=== PATIENT | male | born 1990 | race Caucasian/White ===

== ENCOUNTER 2017-05-03 15:06 | Emergency (ER) | payer SELFPAY ==
[~2017-05-03] VITALS: Ht 185.4 cm; Wt 83.1 kg
[~2017-05-03 15:06] MED LIST: NO HOME MEDS
[2017-05-03] MEDS ORDERED: AMPICILLIN/SULBACTAM 3 GM in SODIUM CHLORIDE 0.9% 100 ML IVPB ONE (15:30)
[2017-05-03] MEDS ORDERED: SODIUM CHLORIDE FLUSH 10ML SYR IVF ONE (15:30)
[2017-05-03] MEDS ORDERED: DEXAMETHASONE 4 MG/ML, 1ML IV ONE (15:30)
[2017-05-03] MEDS ORDERED: HYDROmorphone 1 MG/ML, 1ML ONE ×2 (16:12→16:54)
[2017-05-03] MEDS ORDERED: ONDANSETRON 2MG/ML, 2ML ONE (16:12)
[2017-05-03] MEDS ORDERED: DEXAMETHASONE 4 MG/ML, 5ML ONE (16:12)
[2017-05-03] MEDS: HYDROmorphone 1 MG/ML, 1ML IVPush PRN ×2 (16:17→16:56)
[2017-05-03] MEDS ORDERED: DEXAMETHASONE 4 MG/ML, 1ML ONE (16:26)
[2017-05-03] MEDS ORDERED: ONDANSETRON 2MG/ML, 2ML IVPush ONE (16:30)
[2017-05-03 17:17] VITALS: BP 123/77
== END 2017-05-03 17:32 | disposition home or self-care (01) ==
LOC: ED 16:42
DX: J02.9 Acute pharyngitis, unspecified (principal); F17.210 Nicotine dependence, cigarettes, uncomplicated
CPT/HCPCS: 96365; 96375; 96376; 99284; J0295; J1100; J1170; J2405

== ENCOUNTER 2020-12-22 23:49 | Inpatient (IN) | payer BC, OTHER ==
[~2020-12-22] VITALS: Ht 185.4 cm; Wt 100.0 kg
--- NOTE | 2020-12-22 23:55 | NUR ---
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
[2020-12-23] MEDS ORDERED: SODIUM CHLORIDE FLUSH 10ML SYR IVF ONE
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
[2020-12-23] MEDS ORDERED: MORPHINE SULFATE 4 MG/ML, 1ML ONE ×2 (00:08→00:39)
[2020-12-23] MEDS ORDERED: ONDANSETRON 2MG/ML, 2ML ONE (00:08)
[2020-12-23] MEDS: MORPHINE SULFATE 4 MG/ML, 1ML IVPush PRN ×2 (00:14→00:35)
--- NOTE | 2020-12-23 00:20 | NUR ---
Patient c/o extreme head pressure. Medicated patient per mar. Patient to CT.
[2020-12-23] MEDS ORDERED: SODIUM CHLORIDE 0.9% 1,000ML IVBOLUS ONE (00:30)
[2020-12-23] MEDS ORDERED: ONDANSETRON 2MG/ML, 2ML IVPush ONE (00:30)
[2020-12-23] MEDS ORDERED: LORazepam 2 MG/ML, 1ML ONE (00:53)
--- NOTE | 2020-12-23 00:58 | NUR ---
Patient anxious; medicated patient per mar.
[2020-12-23] MEDS ORDERED: LORazepam 2 MG/ML, 1ML IVPush ONE (01:00)
[2020-12-23 01:03] LABS: BASOPHILS % (AUTO) 1 % (0-1); EOSINOPHILS % (AUTO) 2 % (1-7); LYMPHOCYTES % (AUTO) 28 % (22-44); MEAN CORPUSCULAR HEMOGLOBIN 31.4 pg (27.5-34.5); MEAN PLATELET VOLUME 8.5 fL (7.4-10.4); MONOCYTES % (AUTO) 10 % (2-9); NEUTROPHILS % (AUTO) 60 % (42-75); PLATELET COUNT 249 x10^3/uL (130-400); RED BLOOD COUNT 5.43 x10^6/uL (4.38-5.82); RED CELL DISTRIBUTION WIDTH 13.1 % (9.4-14.8)
[2020-12-23 01:08] LABS: ALBUMIN 4.4 g/dL (3.4-5.0); ANION GAP 7 mmol/L (5-15); CHLORIDE 107 mmol/L (98-107); CREATININE 1.47 mg/dL (0.7-1.3)
[2020-12-23 01:15] LABS: INTERNATIONAL NORMALIZED RATIO 1.04 (0.93-1.1); PROTHROMBIN TIME 11.1 Seconds (9.6-11.5)
[2020-12-23] MEDS ORDERED: LEVETIRACETAM 1,000 MG in SODIUM CHLORIDE 0.9% 100 ML IV ONE (01:30)
[2020-12-23] MEDS ORDERED: LIDOCAINE-MPF 1%, 5ML ONE (01:39)
[2020-12-23] MEDS ORDERED: LIDOCAINE-MPF 1%, 5ML INFIL ONE (02:00)
--- NOTE | 2020-12-23 02:23 | NUR ---
ERP at bedside for sutures.
[2020-12-23 02:30] VITALS: BP 120/67
[2020-12-23] MEDS ORDERED: LABETALOL 5MG/ML, 20ML IVPush PRN (02:30)
[2020-12-23] MEDS ORDERED: POLYETHYLENE GLYCOL 17 GM PACKET PO PRN (02:30)
[2020-12-23] MEDS ORDERED: DOCUSATE 100 MG CAPSULE PO PRN (02:30)
[2020-12-23] MEDS ORDERED: ONDANSETRON ODT 4 MG PO PRN (02:30)
[2020-12-23] MEDS ORDERED: ONDANSETRON 2MG/ML, 2ML IVPush PRN (02:30)
[2020-12-23] MEDS ORDERED: hydrALAzine 20 MG/ML, 1ML IVPush PRN (02:30)
[2020-12-23] MEDS ORDERED: BISACODYL 10 MG SUPP PR PRN (02:30)
[2020-12-23] MEDS ORDERED: ACETAMINOPHEN 325 MG TABLET PO PRN (02:30)
[2020-12-23] MEDS ORDERED: PROMETHAZINE 25 MG/ML, 1ML IM PRN (02:30)
[2020-12-23] MEDS ORDERED: POTASSIUM CHLORIDE 20 MEQ TAB.ER.PRT PO ONE (03:00)
[2020-12-23] MEDS: OXYcodone IR 5MG TABLET PO PRN ×5 (03:15→18:24)
[2020-12-23 08:27] LABS: BASOPHILS % (AUTO) 1 % (0-1); EOSINOPHILS % (AUTO) 1 % (1-7); LYMPHOCYTES % (AUTO) 22 % (22-44); MEAN CORPUSCULAR HEMOGLOBIN 31.4 pg (27.5-34.5); MEAN CORPUSCULAR HGB CONC 35.2 g/dL (33.2-36.2); MONOCYTES % (AUTO) 11 % (2-9); NEUTROPHILS % (AUTO) 66 % (42-75); PLATELET COUNT 215 x10^3/uL (130-400); RED BLOOD COUNT 4.99 x10^6/uL (4.38-5.82); RED CELL DISTRIBUTION WIDTH 13.1 % (9.4-14.8)
[2020-12-23 08:38] LABS: ALANINE AMINOTRANSFERASE 43 U/L (12-78); ALBUMIN 3.7 g/dL (3.4-5.0); ANION GAP 7 mmol/L (5-15); CALCIUM 8.7 mg/dL (8.5-10.1); CHLORIDE 113 mmol/L (98-107); CHOLESTEROL, TOTAL 213 mg/dL (140-239); CREATININE 1.03 mg/dL (0.7-1.3)
[2020-12-23 08:47] LABS: ALKALINE PHOSPHATASE 104 U/L (45-117); BILIRUBIN,TOTAL 0.6 mg/dL (0.2-1.0); CHOL/HDL RATIO 6.5; HDL CHOL % 15 % (26-37); HDL CHOLESTEROL (DIRECT) 33 mg/dL (40-60); LDL CHOLESTEROL,CALCULATED 145 mg/dL (54-169); LDL/HDL RATIO 4.4 (0.5-3.0); TOTAL PROTEIN 7.1 g/dL (6.4-8.2); TRIGLYCERIDES 176 mg/dL (50-200); VLDL CHOLESTEROL 35 mg/dL (0-25)
[2020-12-23] MEDS: LEVETIRACETAM 500 MG in SODIUM CHLORIDE 0.9% 100 ML IV SCH (13:05)
[2020-12-23] MEDS: morphine SULFATE 10 MG/ML, 1ML IVPush PRN ×2 (20:02→23:03)
[2020-12-24] MEDS: LEVETIRACETAM 500 MG in SODIUM CHLORIDE 0.9% 100 ML IV SCH (00:51)
[2020-12-24] MEDS: morphine SULFATE 10 MG/ML, 1ML IVPush PRN ×2 (03:32→06:38)
[2020-12-24 06:02] LABS: ANION GAP 6 mmol/L (5-15); CALCIUM 9.1 mg/dL (8.5-10.1); CHLORIDE 108 mmol/L (98-107); CREATININE 1.12 mg/dL (0.7-1.3)
[2020-12-24] MEDS ORDERED: LEVE500T53 PO (07:42)
[2020-12-24] MEDS: OXYcodone IR 5MG TABLET PO PRN (08:36)
[2020-12-24] MEDS ORDERED: OXYC5TAB98 PO (09:04)
== END 2020-12-24 10:25 | disposition home or self-care (01) | DRG 85 ==
LOC: ED 12-23 01:22 → EDIP 12-23 02:31 → CCU 12-23 03:03 → DCLOUNGE 12-24 10:09
PROVIDERS: ADMIT Internal Medicine; ATTEND Internal Medicine
PROC: 0HQ0XZZ Repair Scalp Skin, External Approach (ICD-10-PCS; principal; 2020-12-23)
DX: S06.5X0A Traumatic subdural hemorrhage without loss of consciousness, initial encounter (principal); N17.0 Acute kidney failure with tubular necrosis; F10.129 Alcohol abuse with intoxication, unspecified; E87.6 Hypokalemia; F17.200 Nicotine dependence, unspecified, uncomplicated; G89.11 Acute pain due to trauma; R56.9 Unspecified convulsions; S01.01XA Laceration without foreign body of scalp, initial encounter; S02.0XXA Fracture of vault of skull, initial encounter for closed fracture; R40.2410 Glasgow coma scale score 13-15, unspecified time; W22.8XXA Striking against or struck by other objects, initial encounter; Y93.89 Activity, other specified; Y92.34 Swimming pool (public) as the place of occurrence of the external cause; Y90.9 Presence of alcohol in blood, level not specified
CPT/HCPCS: 12002; 36415; 70450; 72125; 80048; 80053; 80061; 82040; 83036; 83735; 84100; 84443; 85025; 85610; 85730; 87081; 93005; 96361; 96374; 96375; G0378; J1953; J2405; J2060; J2270; J7030